=== PATIENT | male | born 2000 | race Caucasian/White ===

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

== ENCOUNTER 2021-09-30 14:50 | Emergency (ER) | payer MEDICAID, OTHER ==
--- NOTE | 2021-09-30 15:28 | NUR ---
PATIENT LEFT WITHOUT BEING SEEN BY DR. MONTIEL. NO FURTHER CARE PROVIDED FOR PATIENT.
== END 2021-09-30 15:27 | disposition left against medical advice (07) ==
LOC: MED 14:50
DX: Z53.21 Procedure and treatment not carried out due to patient leaving prior to being seen by health care provider (principal)

== ENCOUNTER 2022-09-18 13:59 | Emergency (ER) | payer MEDICAID ==
[~2022-09-18] VITALS: Ht 177.8 cm; Wt 74.8 kg
[2022-09-18 15:05] VITALS: BP 159/84
--- NOTE | 2022-09-18 15:27 | NUR ---
PT'S LAC BEING SOAKED WITH WARM WATER AND BETADINE.
[2022-09-18] MEDS ORDERED: LIDOCAINE MPF 1% 10 MG/ML VIAL INJ ONE (15:30)
[2022-09-18] MEDS ORDERED: BACITRACIN OINT 500 UNITS/GM PKT TP ONE (15:30)
--- NOTE | 2022-09-18 15:34 | NUR ---
22/M PRESENTS TO ED WITH C/O LACERATION TO SECOND DIGIT ON RIGHT FOOT X1 HOUR. REPORTS STEPPING ON GLASS, UNSURE OF LAST TDAP. BLEEDING CONTROLLED.
--- NOTE | 2022-09-18 15:34 | NUR ---
LAC TRAY SET UP AT BED SIDE. PA NOTIFIED.
[2022-09-18] MEDS ORDERED: BACI1PAC6 TP (16:19)
[2022-09-18] MEDS ORDERED: IBUP-1842 PO (16:19)
--- NOTE | 2022-09-18 16:45 | NUR ---
PT'S LAC CLEANED AND IRRIGATED WITH NORMAL SALINE AND DRESSED WITH NON-ADHERENT GAUZE PAD. CMS WNL BEFORE AND AFTER. PA AND RN NOTIFIED.
--- NOTE | 2022-09-18 16:53 | NUR ---
Patient discharged with v/s stable. Written and verbal after care instructions ABOUT LACERATION given and explained. Patient alert, oriented and verbalized understanding of instructions. Ambulatory with steady gait. All questions addressed prior to discharge. ID band removed. Patient advised to follow up with PMD. Rx of BACITRACIN ANCD IBUPROFEN given. Patient educated on indication of medication including possible reaction and side effects. Opportunity to ask questions provided and answered.
== END 2022-09-18 16:52 | disposition home or self-care (01) ==
LOC: MED 13:59
DX: S91.111A Laceration without foreign body of right great toe without damage to nail, initial encounter (principal); W25.XXXA Contact with sharp glass, initial encounter; Y93.89 Activity, other specified; Y92.89 Other specified places as the place of occurrence of the external cause; Y99.8 Other external cause status
CPT/HCPCS: 12001; 90471; 90715; 99283; J2001

== ENCOUNTER 2023-07-29 10:08 | Emergency (ER) | payer MEDICAID ==
[~2023-07-29] VITALS: Ht 177.8 cm; Wt 74.8 kg
[~2023-07-29 10:08] MED LIST: BACI-418 TP; IBUP-1842 PO
[2023-07-29 10:44] VITALS: BP 126/68; PULSE 52; RESP 18; TEMP 97.7; O2SAT 99
[2023-07-29] MEDS ORDERED: HYDR28CR38 TP (12:29)
[2023-07-29] MEDS ORDERED: LORA10TA19 PO (12:29)
== END 2023-07-29 12:35 | disposition home or self-care (01) ==
LOC: MED 10:08
DX: R21 Rash and other nonspecific skin eruption (principal); Z79.899 Other long term (current) drug therapy
CPT/HCPCS: 99281